=== PATIENT | male | born 1950 | race Caucasian/White ===

== ENCOUNTER → 2017-04-19 | Outpatient (CLI) | payer OTHER, BC ==
[~2017-04-19] MED LIST: ALPHA-LIPOIC A300 MG PO; ASPIR 8181 M1 PO; ASPIRIN E.C.81 M1 PO; CHILDREN'S ASPI81 M1 PO; CRESTOR5 MG PO; CYCLOBENZAPRINE10 MG PO; Diabeta,Micronase PO; FLOMAX0.4 MG PO; GLIMEPIRIDE4 MG PO; GLYBURIDE5 MG PO; HYDROCHLOROTHIA25 MG PO; HYDROCODON-ACE1 EAC8 PO; Hydrodiuril,Oretic,E PO; LANTUS 10100 UNITS/ SC; LANTUS 3 M100 UNITS/ SC; LOPRESSOR100 MG PO; LOPRESSOR50 MG PO; LOSARTAN POTAS100 MG PO; PLAVIX75 MG PO; PROAIR RESPICL90 MCG IH; SPIRIVA1 INHALATI IH; Saw Palmetto PO; Vicodin,Lortab 5/500 PO; Vitamin-E PO; ZESTRIL,PRINIVI40 M1 PO
== END | disposition home or self-care (01) ==
LOC: OPR 08:00 → EDSTATUS 08:00 → OPR 08:04
PROC: 0BBF3ZX Excision of Right Lower Lung Lobe, Percutaneous Approach, Diagnostic (ICD-10-PCS; principal; 2017-04-19)
DX: R91.1 Solitary pulmonary nodule (principal); F17.210 Nicotine dependence, cigarettes, uncomplicated; J44.9 Chronic obstructive pulmonary disease, unspecified; D50.9 Iron deficiency anemia, unspecified; I25.10 Atherosclerotic heart disease of native coronary artery without angina pectoris; E11.40 Type 2 diabetes mellitus with diabetic neuropathy, unspecified; Z95.1 Presence of aortocoronary bypass graft; Z98.1 Arthrodesis status; Z86.010 Personal history of colon polyps; Z88.8 Allergy status to other drugs, medicaments and biological substances
CPT/HCPCS: 71045; 77012; 88305; 88341 TC; 88342 TC; J3010